=== PATIENT | female | born 1995 | race African-American/Black ===

== ENCOUNTER 2017-08-31 15:56 | Emergency (ER) | payer MEDICAID, OTHER ==
[2017-08-31 16:15] VITALS: BP 126/75
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
[2017-08-31 17:04] LABS: PLATELET COUNT 272 10^3/uL (150-400)
== END 2017-08-31 17:54 | disposition home or self-care (01) ==
DX: F91.9 Conduct disorder, unspecified (principal)
CPT/HCPCS: G0480

== ENCOUNTER 2017-09-01 13:02 | Emergency (ER) | payer MEDICAID ==
[2017-09-01] MEDS ORDERED: NS 1,000 ML IV ONE (13:27)
--- NOTE | 2017-09-01 13:50 | EDPHY ---
H & P Smoking Status: Unknown if ever smoked Time Seen by Provider: 09/01/17 13:27 HPI/ROS: CHIEF COMPLAINT: Vomiting and diarrhea HISTORY OF PRESENT ILLNESS: 22-year-old female presents with vomiting and diarrhea. Heavy alcohol use last night, greater than 10 drinks. This morning she awoke with nausea and repeated vomiting. Unable to tolerate oral fluids. Associated with loose stools and crampy abdominal pain. No dysuria or vaginal discharge. REVIEW OF SYSTEMS: complete 10 point ROS negative except at noted in the HPI (Sophia Ayoub) Past Medical/Surgical History: Denies (Sophia Ayoub) Social History: No IV drug abuse (Sophia Ayoub) Physical Exam: General Appearance: Alert, pleasant Eyes: Pupils equal and round, no conjunctival pallor or injection ENT, Mouth: Mucous membranes dry Neck: Normal inspection Respiratory: Lungs are clear to auscultation Cardiovascular: Regular rate and rhythm Gastrointestinal: Abdomen is soft, mild diffuse tenderness, hyperactive bowel sounds Neurological: A&O, nonfocal, normal gait Skin: Warm and dry, no rash Extremities: Normal inspection Psychiatric: Mood and affect normal (Sophia Ayoub) Constitutional: Initial Vital Signs Temperature (C) 36.7 C 09/01/17 13:04 Heart Rate 80 09/01/17 13:04 Respiratory Rate 24 H 09/01/17 13:04 Blood Pressure 102/82 H 09/01/17 13:04 O2 Sat (%) 99 09/01/17 13:04 O2 Delivery Mode Room Air Allergies/Adverse Reactions: ibuprofen Allergy (Verified 08/31/17 16:15) Home Medications: Medication Instructions Recorded Abilify 08/31/17 Escitalopram Oxalate [Lexapro] 08/31/17 traZODone 08/31/17 Ondansetron Odt [Zofran Odt 4 mg 4 mg PO Q4 PRN #6 tab 09/01/17 (*)] Medical Decision Making ED Course/Re-evaluation: IV normal saline 1 L and Zofran 4 mg IV given. 2:30 p.m.-continues to have nausea and crampy abdominal pain. Reglan 10 mg IV given. Labs reviewed and reveal an anion gap metabolic acidosis, consistent with dehydration. The patient was drinking cognac last evening; denies other alcohols. Abd exam remains benign. 3pm: signed over to Dr. Alvarez at shift change. Will repeat Chem 7 after 2nd liter of NS. (Sophia Ayoub) 4:15 p.m. the patient states she is feeling better. She is afebrile. She is no longer nauseous. She has not had any more diarrhea. She is slightly tachycardic around 105. Her repeat chemistry however was still abnormal. The anion gap was improved however the glucose is very high the calcium was very low. It was drawn off of a line that was running D5 normal saline. We will repeat with direct stick. 4:50 p.m. the patient's repeat lab values are much better. Acidosis is improving. She is feeling much better. Her calcium is low. Will check an ionized calcium. It could be that her initial calcium was falsely normal because she was so taught ache and now that she is not acidotic she is truly hypocalcemic. 6:00 p.m. the patient's ionized calcium is only slightly low. It is likely due to her anticonvulsant. She is asymptomatic. She is well appearing and is eager to go home. She tells me that her calcium has been low in the past when they have checked it and she first started noticing it after she had a baby about a year ago. She follows with Dr. Sky. I encouraged her to follow up with her primary for rechecking. Her heart rate has normalized. (Ori Alvarez) Differential Diagnosis: Differential diagnosis includes though it is not limited to appendicitis, cholecystitis, diverticulitis, pyelonephritis, bowel perforation, small bowel obstruction. (Sophia Ayoub) - Data Points Laboratory Results: Laboratory Results 09/01/17 13:24 09/01/17 16:24 Medications Given: Discontinued Medications Sodium Chloride (Ns) 1,000 mls @ 0 mls/hr IV EDNOW ONE; Wide Open PRN Reason: Protocol Stop: 09/01/17 13:28 Last Admin: 09/01/17 13:51 Dose: 1,000 mls Dextrose/Lactated Ringer's (D5w Lr) 1,000 mls @ 0 mls/hr IV EDNOW ONE; Wide Open PRN Reason: Protocol Stop: 09/01/17 14:33 Last Admin: 09/01/17 14:41 Dose: Not Given Dextrose/Sodium Chloride (D5w Ns) 1,000 mls @ 0 mls/hr IV CONT KELLIE PRN Reason: As Directed Stop: 02/28/18 14:44 Last Admin: 09/01/17 14:43 Dose: 1,000 mls Metoclopramide HCl (Reglan Injection) 10 mg IVP EDNOW ONE Stop: 09/01/17 14:37 Last Admin: 09/01/17 14:51 Dose: 10 mg Ondansetron HCl (Zofran) 4 mg IVP EDNOW ONE Stop: 09/01/17 13:28 Last Admin: 09/01/17 13:51 Dose: 4 mg Departure - Departure Disposition: Home, Routine, Self-Care Clinical Impression: Vomiting and diarrhea Condition: Good Instructions: Acute Nausea and Vomiting (ED) Additional Instructions: For your abdominal pain, nausea, and diarrhea, I suggest that you start with clear liquid diet and advance your diet as tolerated. This means start with clear liquids such as water, Gatorade, apple juice and non -caffeinated soda. If you tolerate clear liquids, then you may add bland foods such as bananas, rice, applesauce and toast. If you do not have any worsening of your symptoms, you may begin to resume a regular diet. You have been given a prescription of Zofran to use as needed for ongoing nausea. You may take Tylenol or ibuprofen as needed for abdominal cramping. Pepto-Bismol or gas relieving drugs may provide some relief from belching. Follow up with your regular physician or return to emergency department if you' re still vomiting tomorrow or not improving as expected in the next 1-2 days. Followup sooner if you're worse. Referrals: ADRIENNE BULLARD [Other] - As per Instructions Prescriptions: Ondansetron Odt [Zofran Odt 4 mg (*)] 4 mg PO Q4 PRN #6 tab PRN Reason: Nausea
[2017-09-01] MEDS: ONDANSETRON 4 MG/2 ML VIAL IVP ONE (13:51)
[2017-09-01 13:54] LABS: PLATELET COUNT 319 10^3/uL (150-400)
[2017-09-01] MEDS ORDERED: fentaNYL 100 MCG/2 ML INJ IVP ONE (14:12)
[2017-09-01] MEDS ORDERED: D5W LR 1,000 ML IV ONE (14:32)
[2017-09-01] MEDS ORDERED: METOCLOPRAMIDE 10 MG/2 ML VIAL IVP ONE (14:36)
[2017-09-01] MEDS ORDERED: D5W NS 1,000 ML IV SCH (14:45)
[2017-09-01 18:20] VITALS: BP 102/63
== END 2017-09-01 18:18 | disposition home or self-care (01) ==
DX: R11.10 Vomiting, unspecified (principal); R19.7 Diarrhea, unspecified; E86.9 Volume depletion, unspecified
CPT/HCPCS: 96365; J2405; J2765